=== PATIENT | male | born 1970 ===

== ENCOUNTER 2021-09-11 12:00 | Inpatient (IN) | payer OTHER ==
[~2021-09-11] VITALS: Ht 175.3 cm; Wt 90.7 kg
[2021-09-12] MEDS ORDERED: COZAAR100 MG PO (07:41)
[2021-09-12] MEDS ORDERED: ETO PO (07:42)
[2021-09-12] MEDS ORDERED: NORFLEX PO (07:42)
[2021-09-17] MEDS ORDERED: BACLOFEN10 MG (09:35)
[2021-09-17] MEDS ORDERED: GABAPENTIN100 M2 (09:35)
[2021-09-17] MEDS ORDERED: ETODOLAC600 MG (09:36)
[2021-09-17] MEDS ORDERED: NORFLEX100MG (09:37)
== END 2021-09-19 11:39 | disposition home or self-care (01) | DRG 330 ==
LOC: O/R 09-16 11:39 → SURG 09-16 11:39 → SURH 09-16 12:00 → SURG 09-16 17:22
PROVIDERS: ADMIT Colon & Rectal Surgery; ATTEND Colon & Rectal Surgery
PROC: 0DBP4ZZ Excision of Rectum, Percutaneous Endoscopic Approach (ICD-10-PCS; 2021-09-16)
PROC: 0DTN4ZZ Resection of Sigmoid Colon, Percutaneous Endoscopic Approach (ICD-10-PCS; principal; 2021-09-16 14:30)
DX: K57.32 Diverticulitis of large intestine without perforation or abscess without bleeding (principal); K92.1 Melena; R59.0 Localized enlarged lymph nodes; I10 Essential (primary) hypertension